=== PATIENT | male | born 1960 | race Caucasian/White ===

== ENCOUNTER 2018-03-28 18:31 | Emergency (ER) | payer BC ==
[2018-03-28 18:49] VITALS: BP 155/90
--- NOTE | 2018-03-28 19:07 | UC ---
Abdominal Pain Male HPI - HPI Summary HPI Summary: abdomen cramps began about 7 days ago while taking Amoxicillin for a dental abscess---watery stool no fevers, no one else at home is ill, patient is taking po fluids well and is voiding without difficulty - History of Current Complaint Chief Complaint: UCGI Stated Complaint: ABD CRAMPS/DIARRHEA X7 DAYS Time Seen by Provider: 03/28/18 18:43 Hx Obtained From: Patient Onset/Duration: Sudden Onset, Lasting Days - 7, Worse Since - 2 days Timing: Constant Pain Intensity: 5 Pain Scale Used: 0-10 Numeric Location: Diffuse Character: Cramping Aggravating Factor(s): Food Alleviating Factor(s): Nothing Associated Signs And Symptoms: Positive: Diarrhea - Allergies/Home Medications Allergies/Adverse Reactions: Allergies Allergy/AdvReac Type Severity Reaction Status Date / Time No Known Allergies Allergy Verified 03/28/18 18:46 Home Medications: Home Medications Aspirin [Wise Aspirin] 81 mg PO DAILY 03/28/18 [History Confirmed 03/28/18 ] Atorvastatin* [Lipitor 10 MG*] 10 mg PO DAILY 03/28/18 [History Confirmed ] PMH/Surg Hx/FS Hx/Imm Hx Endocrine History: Dyslipidemia - Surgical History Surgical History: Yes Surgery Procedure, Year, and Place: TONSILLECTOMY A CHILD. RIGHT HAND A CHILD - Family History Known Family History: Positive: None - Social History Occupation: Employed Full-time Lives: With Family Alcohol Use: Daily Alcohol Amount: GLASS OF WINE A DAY Substance Use Type: None Smoking Status (MU): Never Smoked Tobacco Review of Systems Constitutional: Negative Skin: Negative Eyes: Negative ENT: Negative Respiratory: Negative Cardiovascular: Negative Gastrointestinal: Abdominal Pain, Diarrhea Genitourinary: Negative Motor: Negative Neurovascular: Negative Musculoskeletal: Negative Neurological: Negative Psychological: Negative Is Patient Immunocompromised?: No All Other Systems Reviewed And Are Negative: Yes Physical Exam Triage Information Reviewed: Yes Appearance: Well-Appearing, No Pain Distress, Well-Nourished Vital Signs: Initial Vital Signs Temp 97.6 F 03/28/18 18:40 Pulse 74 03/28/18 18:40 Resp 18 03/28/18 18:40 BP 155/90 03/28/18 18:40 Pulse Ox 100 03/28/18 18:40 Vital Signs Reviewed: Yes Eye Exam: Normal Eyes: Positive: Conjunctiva Clear ENT Exam: Normal ENT: Positive: Normal ENT inspection, Hearing grossly normal. Negative: Trismus , Muffled voice, Hoarse voice Dental Exam: Normal Neck exam: Normal Neck: Positive: Supple, Nontender, No Lymphadenopathy Respiratory Exam: Normal Respiratory: Positive: Chest non-tender, Lungs clear, Normal breath sounds, No respiratory distress, No accessory muscle use Cardiovascular Exam: Normal Cardiovascular: Positive: RRR, No Murmur, Pulses Normal, Brisk Capillary Refill Abdominal Exam: Normal Abdomen Description: Positive: Nontender, No Organomegaly, Soft. Negative: CVA Tenderness (R), CVA Tenderness (L) Bowel Sounds: Positive: Present Musculoskeletal Exam: Normal Musculoskeletal: Positive: Strength Intact, ROM Intact, No Edema Neurological Exam: Normal Neurological: Positive: Alert, Muscle Tone Normal Psychological Exam: Normal Skin Exam: Normal Abd Pain Male Course/Dx - Course Course Of Treatment: will start Flagyl increase fluids follow with pcp - Differential Dx/Clinical Impression Provider Diagnoses: acute diarrhea Discharge - Sign-Out/Discharge Documenting (check all that apply): Patient Departure All imaging exams completed and their final reports reviewed: No Studies - Discharge Plan Condition: Stable Disposition: HOME Prescriptions: metroNIDAZOLE [Flagyl 500 MG TAB] 500 mg PO TID #20 tab Patient Education Materials: Acute Diarrhea (ED), Hypertension (ED), Nutrition Tips for Relief of Diarrhea (ED) Referrals: [facility],Ashok Alejandre [Primary Care Provider] - 3 Days Additional Instructions: please call tomorrow afternoon for results of stool testing ---we will call in antibiotics for you if + for c.diff. - Billing Disposition and Condition Condition: STABLE Disposition: Home
[2018-03-28] MEDS ORDERED: metroNIDAZOLE TAB* 250 MG PO ONE (19:41)
--- NOTE | 2018-03-30 07:58 | UC ---
- Progress Note Progress Note: STOOL CX POSITIVE FOR C. DIFF. PATIENT HAS RX FOR FLAGYL 500MG PO TID #20 (7 DAYS). rX FOR C.DIFF COLITIS DURATION IS 10 DAYS THEREFORE, I RXED FLAGYL 500MG PO TID #10 SO THE DURATION WILL BE 10 DAYS. NURSING TO CALL PATIENT; INFORM THE PATIENT OF C.DIFF DX AND THE LONGER DURATION OF FLAGYL RX. ALSO LET THEM KNOW TO GO TO THE EMERGENCY DEPARTMENT IF CONDITION WORSEN. Course/Dx - Diagnoses Provider Diagnoses: C. difficile colitis Discharge - Sign-Out/Discharge Documenting (check all that apply): Patient Departure All imaging exams completed and their final reports reviewed: No Studies - Discharge Plan Condition: Stable Disposition: HOME Prescriptions: metroNIDAZOLE [Flagyl 500 MG TAB] 500 mg PO TID #20 tab metroNIDAZOLE [Flagyl 500 MG TAB] 500 mg PO TID #10 tab Patient Education Materials: Acute Diarrhea (ED), Hypertension (ED), Nutrition Tips for Relief of Diarrhea (ED) Referrals: [facility],Ashok Alejandre [Primary Care Provider] - 3 Days Additional Instructions: please call tomorrow afternoon for results of stool testing ---we will call in antibiotics for you if + for c.diff. - Billing Disposition and Condition Condition: STABLE Disposition: Home
== END 2018-03-28 19:52 | disposition home or self-care (01) ==
LOC: UCCORT 18:31
DX: R19.7 Diarrhea, unspecified (principal); R10.9 Unspecified abdominal pain; E78.5 Hyperlipidemia, unspecified; Z79.82 Long term (current) use of aspirin; Z79.899 Other long term (current) drug therapy
CPT/HCPCS: 81003; 82272; 87045; 87046; 87077; 87328; 87329; 87493; 87899; 99202; A9270-GY; G0463